=== PATIENT | male | born 1985 | race African-American/Black ===

== ENCOUNTER 2021-05-26 21:07 | Emergency (ER) | payer BC ==
[~2021-05-26] VITALS: Ht 172.7 cm; Wt 65.8 kg
[2021-05-26 22:54] LABS: HEMATOCRIT 42.3 % (42.0-52.0); MCH 28.5 pg (26.0-34.0); MCHC 33.1 g/dL (28.0-37.0); MCV 86.2 fL (80.0-100.0); PLATELET COUNT 164 thou/uL (150-400); RBC 4.91 mil/uL (4.50-6.00); RDW 13.8 % (10.5-14.5)
[2021-05-26 23:01] LABS: CREATININE 0.7 mg/dL (0.7-1.3); POTASSIUM 3.3 mmol/L (3.5-5.1)
[2021-05-26 23:08] LABS: ALBUMIN 3.6 g/dL (3.4-5.0); TOTAL BILIRUBIN 0.5 mg/dL (0.2-1.0); TOTAL PROTEIN 6.8 g/dL (6.4-8.2)
[2021-05-27 00:24] LABS: ABSOLUTE NEUTROPHILS 19.4 thou/uL (1.4-8.2)
[2021-05-27 00:25] LABS: ANISOCYTOSIS 1+; BURR CELLS FEW; PLATELET ESTIMATE NORMAL; POIKILOCYTOSIS 1+; SCHISTOCYTES 1+
[2021-05-27 03:11] VITALS: BP 129/87
== END 2021-05-27 03:30 | disposition short-term general hospital (02) ==
LOC: ER 21:07
PROVIDERS: Nurse Practitioner
DX: K14.0 Glossitis (principal); Z20.822 Contact with and (suspected) exposure to COVID-19; K04.7 Periapical abscess without sinus